=== PATIENT | female | born 1995 | race African-American/Black ===

== ENCOUNTER 2017-06-28 12:58 | Emergency (ER) | payer OTHER, SELFPAY ==
[2017-06-28 13:56] LABS: #Basophils 0.1 thou/uL (0.0-0.2); #Eosinphils 0.2 thou/uL (0.0-0.7); #Lymphocytes 1.9 thou/uL (1.20-3.40); #Monocytes 0.5 thou/uL (0.11-0.59); #Neutrophils 4.9 thou/uL (1.40-6.50); %Basophils 0.8 % (0.0-1.0); %Eosinophils 2.1 % (0.0-10.0); %Lymphocytes 25.4 % (28.0-48.0); %Monocytes 6.2 % (0.0-4.0); Hematocrit 40.5 % (36.0-47.0); Mean Platelet Volume 7.4 fL (7.4-10.4); Red Blood Cell (RBC) Count 4.44 mill/uL (4.00-5.20); White Blood Cell (WBC) Count 7.4 thou/uL (4.8-10.8)
[2017-06-28 14:29] LABS: Bilirubin Negative (Negative); Blood, Urine Trace (Negative); Glucose, Urine (Dipstick) Negative (Negative); Ketone, Urine Negative (Negative); Nitrite Negative (Negative); Protein, Urine (Dipstick) Negative (Neg-Trace); Urobilinogen 0.2 mg/dL (0.2-1.0)
[2017-06-28 14:33] LABS: Bacteria/HPF None Seen HPF (None Seen); Hyaline Casts/LPF 0-3 HYALINE CAST LPF (0-3 Hyaline); RBC/HPF 0-3 HPF (0-3); Squamous Epithelial 0-3 HPF (0-3)
--- NOTE | 2017-06-28 15:34 | ULT ---
ULTRASOUND PELVIS EARLY OBSTETRICAL: History: 22-year-old female with positive home test, experiencing cramping type of pelvic pain and vaginal bleeding. FINDINGS: There is tiny intrauterine gestational sac containing an embryonic pole with crown-rump length of ap proximately 3.8 mm, corresponding to six weeks 0 days gestational age. heart rate is 104 bpm. No evidence of subchorionic hemorrhage. Uterus is 10 x 5.5 x 3 cm. Right ovary is 2.5 x 1.5 x 3 cm. Blood flow is demonstrated in the right ovary by doppler. Left ovary is not visualized. IMPRESSION: 1. Live first trimester intrauterine gestation estimated to be 6 weeks 0 days gestational age. 2. No evidence of subchorionic hemorrhage. 3. heart rate is slightly low for this age, 104 bpm. Recommend continued follow up with serial beta HCG levels; and if clinically indicated, follow up pelvic and transvaginal ultrasound. POS: [facility]
== END 2017-06-28 16:07 | disposition home or self-care (01) ==
LOC: ERS 12:58
DX: O20.0 Threatened abortion (principal); J45.909 Unspecified asthma, uncomplicated; O99.511 Diseases of the respiratory system complicating pregnancy, first trimester; O99.331 Smoking (tobacco) complicating pregnancy, first trimester; F17.210 Nicotine dependence, cigarettes, uncomplicated; Z3A.01 Less than 8 weeks gestation of pregnancy
CPT/HCPCS: 36415; 76856; 81003; 81015; 84702; 85025; 86900; 86901

== ENCOUNTER 2018-02-16 09:21 | Emergency (ER) | payer SELFPAY ==
[2018-02-16 09:48] LABS: Bilirubin Negative (Negative); Blood, Urine Negative (Negative); Clarity CLEAR (Clear); Glucose, Urine (Dipstick) Negative (Negative); Leukocyte Negative (Negative); Nitrite Negative (Negative); Protein, Urine (Dipstick) Negative (Neg-Trace); Specific Gravity, Urine 1.019 (1.002-1.036); Urobilinogen 0.2 mg/dL (0.2-1.0)
[2018-02-16 09:49] LABS: Pregnancy Test - Urine (BHCG) Negative (Negative); Pregu Control Background? CLEAR/WHITE (CLR/WHITE); Pregu Control Bar Appear? YES (CONTROL BAR); Specific Gravity 1.019 (1.002-1.036)
[2018-02-16] MEDS ORDERED: Ondansetron ODT 4 MG TAB ONE (10:23)
== END 2018-02-16 10:58 | disposition home or self-care (01) ==
LOC: ERS 09:21
DX: A08.4 Viral intestinal infection, unspecified (principal); Z71.6 Tobacco abuse counseling; J45.909 Unspecified asthma, uncomplicated; F17.210 Nicotine dependence, cigarettes, uncomplicated
CPT/HCPCS: 81003; 81025; 96372; 99406; Q0162